=== PATIENT | female | born 1935 | race Caucasian/White ===

== ENCOUNTER 2025-05-27 12:22 | Inpatient (IN) | payer MEDICARE, SELFPAY ==
--- OUTSIDE RECORDS SUMMARY | 2025-05-19 08:00 | XMS_ITS | Encounter Summary ---
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 Social History Tobacco UseTypesPacks/DayYears UsedDateSmoking Tobacco: NeverSmokeless Tobacco: NeverCommentsUnknownSex and Gender InformationValueDate RecordedSex Assigned at BirthNot on fileLegal CngCqtdbb09/15/2023 7:24 PM EDTGender Identity Not on fileSexual OrientationNot on filedocumented as of this encounter Last Filed Vital Signs Vital SignReadingTime TakenCommentsBlood Igjxlsag990/6205/19/2025 11:50 AM EDT Pulse--Temperature--Respiratory Rate--Oxygen Saturation--Inhaled Oxygen Concentration--Weight--Height--Body Mass Index--documented in this encounter Progress Notes * Suyapa Tiwari MD - 05/19/2025 9:00 AM EDT Images from the original note were not included. Mohs Surgery Location: Left superior helix Date of biopsy: 02/28/2025 Diagnosis: Basal Cell Carcinoma All pertinent medical history, medications, and allergies were reviewed. General Exam: alert, oriented to person, place, and time, normal affect, well appearing Unaccompanied A focused exam completed based on patient reported problems, see below: Skin Exam 1. BASAL CELL CARCINOMA (BCC) OF HELIX OF LEFT EAR Left [place] Flesh colored papule at the biopsy site, re-measured today at 1.0 x 0.9 cm - Mohs surgery Consent obtained: written [place] Protocol: Procedure explained and questions answered to patient or proxy's satisfaction: Yes Test results available and properly labeled: Yes Pathology report reviewed: Yes External notes reviewed: Yes Photo or diagram used for site identification: Yes Site/side marked: Yes Slide independently reviewed by Mohs surgeon: Yes Anticoagulation: Is the patient taking prescription anticoagulant and/or aspirin prescribed/recommended by a physician? Yes (81 mg ASA) Was the anticoagulation regimen changed prior to Mohs? No Anesthesia: Anesthesia method: local infiltration Local anesthetic: lidocaine 1% WITH epi and sodium bicarbonate Procedure Details: Timeout: pre-procedure verification complete Procedure Prep: patient was prepped and draped in usual sterile fashion Prep type: chlorhexidine Biopsy accession number: [id number] Biopsy lab: [facility] Date of biopsy: 02/28/2025 Frozen section biopsy performed: No Specimen debulked: No Pre-Op diagnosis: basal cell carcinoma BCC subtype: nodular MohsAIQ Surgical site (if tumor spans multiple areas, please select predominant area): ear Surgery side: left Surgical site (from skin exam): Left [place] Pre-operative length (cm): 1 Pre-operative width (cm): 0.9 Indications for Mohs surgery: anatomic location where tissue conservation is critical and ill-defined borders Previously treated? No Mohs Appropriate Use Criteria Score: 8 Details of micrographic surgery: Mohs accession number: [id number] Micrographic Surgery Details: Post-operative length (cm): 1.3 Post-operative width (cm): 1.2 Number of Mohs stages: 2 Post surgery depth of defect: perichondrium Stage 1 Comments: The area was prepped with Hibiclens, draped in a sterile fashion, and infiltrated with local anesthetic. Sterile technique was used throughout the procedure. The marked area of clinical tumor with a small rim of clinically normal surrounding skin was removed using Mohs technique with beveled edges. Hash nesbitt were placed for orientation of the specimen. Hemostasis was achieved with electrodessication. After hemostasis, the defect was measured and recorded, a temporary sterile dressingwas placed over the wound, and the patient was escorted to the waiting area. The specimen was oriented, mapped, and if necessary, divided into sections. A Mohs map was prepared. The specimen was placed in a labeled yuliana dish and was taken to the Mohs lab where it was chromacoded and processed. Mohs sections were prepared with serial tissue sections, stained, and evaluated by Dr. Tiwari for interpretation of deep and peripheral margins. The Mohs map was marked accordingly. Amount of lidocaine used: 1.0 cc Estimated blood loss: minimal Defect size: 1.1 x 1.0 cm Number of blocks per stage: 1 Number of positive blocks: 1 Tumor features identified on Mohs section: basal carcinoma Tumor features identified on Mohs section comment: nodular and micronodular in dermis, superficial at the lateral margin Depth of tumor invasion after stage: dermis Stage 2 Comments: The patient returned to the procedure room, the dressing was removed, the tumor area was re-prepped and draped, and anesthesia was assessed and augmented as necessary. A layer of tissue around the positive margin(s) was removed, and the tissue was oriented, mapped, and processed in an identical fashion as for Stage 1. Hemostasis was achieved and dressing placed as in Stage 1. The patient was escorted to the waiting area. As with Stage 1, Mohs sections were prepared with serial tissue sections, stained, and evaluated by Dr. Tiwari for interpretation of deep and peripheral margins. The Mohs map was updated. Assistants: Moe Morris LPN Amount of lidocaine used: 1.0 cc Estimated blood loss: minimal Defect size: 1.3 x 1.2 cm Number of blocks: 1 Number of positive blocks: 0. Tumor free margins were obtained and the Mohs procedure was considered complete. Tumor features identified on Mohs section: no tumor identified Depth of tumor invasion after stage: perichondrium Patient tolerance of procedure: tolerated well, no immediate complications Reconstruction: Was the defect reconstructed?: No Antibiotics: Were antibiotics given on the day of surgery?: No Mohs Post Operative Type of repair: None. Wound to heal by secondary intention. Wound Care: A dressing was placed on the surgical wound. Post-operative instructions were given in writing and were reviewed with the patient. A follow- up appointment was made, and instructions were given to follow-up sooner if necessary. 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 Test results available and properly labeled: Yes ?? Pathology report reviewed: Yes ?? External notes reviewed: Yes ?? Photo or diagram used for site identification: Yes ?? Site/side marked: Yes ?? Slide independently reviewed by Mohs surgeon: Yes ?? Anticoagulation: Is the patient taking prescription anticoagulant and/or aspirin prescribed/recommended by a physician? Yes (81 mg ASA) ?? Was the anticoagulation regimen changed prior to Mohs? No ?? Anesthesia: Anesthesia method: local infiltration Local anesthetic: lidocaine 1% WITH epi and sodium bicarbonate Procedure Details: Timeout: pre-procedure verification complete Procedure Prep: patient was prepped and draped in usual sterile fashion Prep type: chlorhexidine Biopsy accession number: [id number] Biopsy lab: [facility] Date of biopsy: 02/28/2025 Frozen section biopsy performed: No ?? Specimen debulked: No ?? Pre-Op diagnosis: basal cell carcinoma BCC subtype: nodular MohsAIQ Surgical site (if tumor spans multiple areas, please select predominant area): ear Surgery side: left Surgical site (from skin exam): Left [place] Pre-operative length (cm): 1 Pre-operative width (cm): 0.9 Indications for Mohs surgery: anatomic location where tissue conservation is critical and ill-defined borders Previously treated? No ?? Mohs Appropriate Use Criteria Score: 8 Details of micrographic surgery: Mohs accession number: [id number] Micrographic Surgery Details: Post-operative length (cm): 1.3 Post-operative width (cm): 1.2 Number of Mohs stages: 2 Post surgery depth of defect: perichondrium Stage 1 ?? Comments: The area was prepped with Hibiclens, draped in a sterile fashion, and infiltrated with local anesthetic. Sterile technique was used throughout the procedure. The marked area of clinical tumor with a small rim of clinically normal surrounding skin was removed using Mohs technique with beveled edges. Hash nesbitt were placed for orientation of the specimen. Hemostasis was achieved with electrodessication. After hemostasis, the defect was measured and recorded, a temporary sterile dressing was placed over the wound, and the patient was escorted to the waiting area. The specimen was oriented, mapped, and if necessary, divided into sections. A Mohs map was prepared. The specimen was placed in a labeled yuliana dish and was taken to the Mohs lab where it was chromacoded and processed. Mohs sections were prepared with serial tissue sections, stained, and evaluated by Dr. Tiwari for interpretation of deep and peripheral margins. The Mohs map was marked accordingly. Amount of lidocaine used: 1.0 cc Estimated blood loss: minimal Defect size: 1.1 x 1.0 cm Number of blocks per stage: 1 Number of positive blocks: 1 ?? Tumor features identified on Mohs section: basal carcinoma ?? Tumor features identified on Mohs section comment: nodular and micronodular in dermis, superficial at the lateral margin ?? Depth of tumor invasion after stage: dermis Stage 2 ?? Comments: The patient returned to the procedure room, the dressing was removed, the tumor area was re-prepped and draped, and anesthesia was assessed and augmented as necessary. A layer of tissue around the positive margin(s) was removed, and the tissue was oriented, mapped, and processed in an identical fashion as for Stage 1. Hemostasis was achieved and dressing placed as in Stage 1. The patient was escorted to the waiting area. As with Stage 1, Mohs sections were prepared with serial tissue sections, stained, and evaluated by Dr. Tiwari for interpretation of deep and peripheral margins. The Mohs map was updated. Assistants: Moe Morris LPN Amount of lidocaine used: 1.0 cc Estimated blood loss: minimal Defect size: 1.3 x 1.2 cm Number of blocks: 1 Number of positive blocks: 0. Tumor free margins were obtained and the Mohs procedure was considered complete. ?? Tumor features identified on Mohs section: no tumor identified ?? Depth of tumor invasion after stage: perichondrium Patient tolerance of procedure: tolerated well, no immediate complications Reconstruction: Was the defect reconstructed?: No ?? Antibiotics: Were antibiotics given on the day of surgery?: No ?? 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
[2025-05-27] VITALS (22 sets, daily range): BP systolic 137–182; BP diastolic 69–99; PULSE 73–96; TEMP 36.3–36.7; O2SAT 95–98; BMI 21.9; BMI 22.2
--- NOTE | 2025-05-27 12:40 | CT_ITS ---
The [address] [address] Patient Name: MARIA R HIRSCH MRN: [id number] date: 1935 Sex: F Assigned Patient Location: ER Current Patient Location: Accession/Order Number: [id number] Exam Date: 05/27/2025 13:05 Report Date: 05/27/2025 13:51 At the request of: BASSAM JANE DO Procedure: CT angio neck CT angio head, CT angio neck 05/27/2025 1:19 PM SIGNS AND SYMPTOMS: Right upper extremity weakness, right facial droop TECHNIQUE: Multi-detector CT angiography axial slices of the head and neck were obtained during intravenous administration of IV contrast material. Sagittal, coronal, and 3-D reconstructions were performed and viewed on a separate workstation. CT was performed with one or more of the following dose reduction techniques: Automated exposure control, adjustment of the mA and/or kV according to patient size, or use of iterative reconstruction technique. Stenoses were measured using the NASCET criteria. COMPARISON: None. FINDINGS: CTA HEAD: The superior cerebellar arteries, posterior inferior cerebellar arteries, and the basilar artery are within normal limits. The posterior cerebral arteries are unremarkable. Calcified plaque is noted in the intracranial segments of the internal carotid arteries contributing to mild multifocal narrowing.. There are normal anterior and middle cerebral arteries. Anterior communicating artery is patent. Posterior communicating arteries are present. The deep venous system and dural venous systems appear to be patent. No bony abnormalities are appreciated. CTA NECK: Atherosclerotic changes are noted in the aortic arch and origins of the great vessels. There is a common ostium of the left common carotid and brachiocephalic artery which is a normal variant. The subclavian arteries are within normal limits. The vertebral arteries arise from the subclavian arteries. Calcified plaque is noted in the origins of the vertebral arteries contributing to moderate stenosis on the right and mild stenosis on the left. 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 This measures approximately 3 mm. Calcified plaque is noted in the carotid bifurcations contributing to approximately 60% stenosis of the proximal left internal carotid artery with less than 20% stenosis on the right. Visualized lung parenchyma is clear. Degenerative changes are noted in the cervical spine. No acute bony abnormalities are identified. The paraspinous soft tissues are within normal limits. CT/CT angio head IMPRESSION: Calcified plaque is noted in the carotid bifurcations contributing to approximately 60% stenosis of the proximal left internal carotid artery with less than 20% stenosis on the right. Calcified plaque is noted in the origins of the vertebral arteries contributing to moderate stenosis on the right and mild stenosis on the left. 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 This measures approximately 3 mm. No evidence of occlusion or dissection. Impression dictated by: Kermit White M.D. 05/27/2025 1:51 PM Dictation Location: [place] [address] Electronically authenticated by: [id number] Y Date: 05/27/2025 13:51
--- NOTE | 2025-05-27 12:40 | ECG_ITS ---
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 Measurements Intervals [place] Rate: 76 P: 56 MS: 180 QRS: 59 QRSD: 78 T: 49 QT: 394 QTc: 424 Interpretive Statements 1100 Sinus rhythm 4068 Nonspecific Twave abnormality 9130 borderline ECG No previous ECG available for comparison Electronically Signed On 05-27-2025 22:48:21 EST by MIGUEL A RAMIREZ M.D.
--- NOTE | 2025-05-27 12:40 | CT_ITS ---
The [address] [address] Patient Name: MARIA R HIRSCH MRN: [id number] date: 1935 Sex: F Assigned Patient Location: ER Current Patient Location: Accession/Order Number: [id number] Exam Date: 05/27/2025 13:05 Report Date: 05/27/2025 13:51 At the request of: BASSAM JANE DO Procedure: CT angio neck CT angio head, CT angio neck 05/27/2025 1:19 PM SIGNS AND SYMPTOMS: Right upper extremity weakness, right facial droop TECHNIQUE: Multi-detector CT angiography axial slices of the head and neck were obtained during intravenous administration of IV contrast material. Sagittal, coronal, and 3-D reconstructions were performed and viewed on a separate workstation. CT was performed with one or more of the following dose reduction techniques: Automated exposure control, adjustment of the mA and/or kV according to patient size, or use of iterative reconstruction technique. Stenoses were measured using the NASCET criteria. COMPARISON: None. FINDINGS: CTA HEAD: The superior cerebellar arteries, posterior inferior cerebellar arteries, and the basilar artery are within normal limits. The posterior cerebral arteries are unremarkable. Calcified plaque is noted in the intracranial segments of the internal carotid arteries contributing to mild multifocal narrowing.. There are normal anterior and middle cerebral arteries. Anterior communicating artery is patent. Posterior communicating arteries are present. The deep venous system and dural venous systems appear to be patent. No bony abnormalities are appreciated. CTA NECK: Atherosclerotic changes are noted in the aortic arch and origins of the great vessels. There is a common ostium of the left common carotid and brachiocephalic artery which is a normal variant. The subclavian arteries are within normal limits. The vertebral arteries arise from the subclavian arteries. Calcified plaque is noted in the origins of the vertebral arteries contributing to moderate stenosis on the right and mild stenosis on the left. 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 This measures approximately 3 mm. Calcified plaque is noted in the carotid bifurcations contributing to approximately 60% stenosis of the proximal left internal carotid artery with less than 20% stenosis on the right. Visualized lung parenchyma is clear. Degenerative changes are noted in the cervical spine. No acute bony abnormalities are identified. The paraspinous soft tissues are within normal limits. CT/CT angio neck IMPRESSION: Calcified plaque is noted in the carotid bifurcations contributing to approximately 60% stenosis of the proximal left internal carotid artery with less than 20% stenosis on the right. Calcified plaque is noted in the origins of the vertebral arteries contributing to moderate stenosis on the right and mild stenosis on the left. 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 This measures approximately 3 mm. No evidence of occlusion or dissection. Impression dictated by: Kermit White M.D. 05/27/2025 1:51 PM Dictation Location: [place] [address] Electronically authenticated by: [id number] Y Date: 05/27/2025 13:51
--- NOTE | 2025-05-27 12:40 | XR_ITS ---
[place] [id number] Patient Name: MARIA R HIRSCH MRN: [id number] date: 1935 Sex: F Assigned Patient Location: ER Current Patient Location: ER Accession/Order Number: [id number] Exam Date: 05/27/2025 13:35 Report Date: 05/27/2025 14:13 At the request of: BASSAM JANE DO Procedure: XR chest 1V XR chest 1V 05/27/2025 1:44 PM SIGNS AND SYMPTOMS: ^CVA PROTOCOL: Frontal radiograph of the chest COMPARISON: None FINDINGS: The trachea is midline. Atherosclerotic changes are noted in the thoracic aorta. The heart and mediastinal structures are within normal limits. The lung parenchyma is clear. The bony thorax is intact. Degenerative changes are noted in the shoulders and thoracic spine. XR/XR chest 1V IMPRESSION: No acute cardiopulmonary pathology. Impression dictated by: Kermit White M.D. 05/27/2025 2:13 PM Dictation Location: [place] [address] Electronically authenticated by: [id number] Y Date: 05/27/2025 14:13
--- NOTE | 2025-05-27 12:40 | CT_ITS ---
The [address] [address] Patient Name: MARIA R HIRSCH MRN: [id number] date: 1935 Sex: F Assigned Patient Location: ER Current Patient Location: [facility] Accession/Order Number: [id number] Exam Date: 05/27/2025 12:48 Report Date: 05/27/2025 13:00 At the request of: BASSAM JANE DO Procedure: CT stroke head/brain wo con CT stroke head/brain wo con 05/27/2025 12:51 PM SIGNS AND SYMPTOMS: ^R arm, leg weakness 25 hours ago TECHNIQUE:Multi-detector CT axial slices of the brain were obtained without IV contrast. CT was performed with one or more of the following dose reduction techniques: Automated exposure control, adjustment of the mA and/or kV according to patient size, or use of iterative reconstruction technique. COMPARISON: None. FINDINGS: There is no shift of the midline structures, acute intracranial bleeding, or mass effect. There is hypoattenuation in the left frontal cortex extending to the precentral gyrus just beneath the expected location of the motor strip the left hand/upper extremity. This may represent edema as a result of acute or subacute ischemia. There is age-related cortical atrophy. 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 There is periventricular white matter hypoattenuation. 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 The ventricular system is normal in size. The brainstem and the cerebellum are within normal limits otherwise. The visualized intraorbital contents, the visualized paranasal sinuses, and the infratemporal soft tissues show no acute abnormality. The osseous structures in the skull base and the calvarium show no abnormality. CT/CT stroke head/brain wo con IMPRESSION: There is hypoattenuation in the left frontal cortex extending to the precentral gyrus just beneath the expected location of the motor strip the left hand/upper extremity. This may represent edema as a result of acute or subacute ischemia. No acute intracranial hemorrhage. Additional chronic appearing findings are noted as above. Impression dictated by: Kermit White M.D. 05/27/2025 1:00 PM Dictation Location: [place] [address] Electronically authenticated by: [id number] Y Date: 05/27/2025 13:00
[2025-05-27 12:53] LABS: Hematocrit 39.9 % (36.0-48.0); Hemoglobin 13.1 g/dL (12.0-16.0); Immature Granulocytes Abs Auto 0.01 10^3/uL (0.00-0.03); Immature Granulocytes Pct Auto 0.2 % (0.0-0.5); Lymphocytes Absolute Auto 1.6 10^3/uL (1.2-3.8); Mean Corpuscular HGB Conc 32.8 g/dL (29.9-35.2); Mean Corpuscular Hemoglobin 31.2 pg (26.7-34.0); Mean Corpuscular Volume 95.0 fL (81.0-99.0); Platelet Count 185 10^3/uL (150-450); Red Blood Count 4.20 10^6/uL (4.20-5.40); White Blood Count 5.1 10^3/uL (4.0-11.0)
--- OUTSIDE RECORDS SUMMARY | 2025-05-27 13:05 | XMS_ITS | Clinical Summary ---
Author Organization [facility] Address [address] [place] [address] Phone Care Team Providers Care Head Chef Name Role Phone Unavailable Primary Care Provider Unavailabl e Social History Tobacco UseTypesPacks/DayYears UsedDateSmoking Tobacco: Never Assessed CommentsUnknownSex and Gender InformationValueDate RecordedSex Assigned at Not on fileLegal WmiFtyepz25/25/2022 4:20 PM ESTGender IdentityNot on fileSexual OrientationNot on file Plan of Treatment Not on file
--- OUTSIDE RECORDS SUMMARY | 2025-05-27 13:05 | XMS_ITS | Encounter Summary ---
Author Organization [facility] Address [address] [place] [address] Care Team Providers Care Custom Studio Coordinator Name Role Phone Unavailable Primary Care Provider Unavailabl e Encounter Details DateTypeDepartmentCare Team (Latest Contact Info)Ysrdtzoxsij57/31/2025amboo flowsheet [facility] [address] [place] [address] Suyapa Tiwari MD [address] [place] [address] Social History Tobacco UseTypesPacks/DayYears UsedDateSmoking Tobacco: NeverSmokeless Tobacco: NeverCommentsUnknownSex and Gender InformationValueDate RecordedSex Assigned at BirthNot on fileLegal MxrXyjmxe28/15/2023 7:24 PM EDTGender Identity Not on fileSexual OrientationNot on filedocumented as of this encounter Plan of Treatment DateTypeDepartmentCare Team (Latest Contact Info)Vaghigyxcrq32/12/2026 12:30 PM EDTOffice Visit [facility] [address] [place] [address] Crys Low PA [address] [place] [address] documented as of this encounter Visit Diagnoses Not on filedocumented in this encounter
--- OUTSIDE RECORDS SUMMARY | 2025-05-27 13:05 | XMS_ITS | Clinical Summary ---
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 Take with meals.Active CINNAMON PO Take by mouthActive Ascorbic Acid (vitamin C) 100 MG tablet Take 100 mg by mouth DailyActive verapamil ER (Verelan PM) 100 MG 24 hr capsule Take 100 mg by mouth at bedtime Do not crush or chew.Active escitalopram (Lexapro) 20 MG tablet Take 20 mg by mouth DailyActive pravastatin (Pravachol) 20 MG tablet Take by mouthActive Cranberry 4200 MG capsule Take by mouthActive Melatonin 3 MG capsule Take by mouthActive aspirin 81 MG EC tablet Take 81 mg by mouth DailyActive doxycycline (Monodox) 100 MG capsule Take 100 mg by mouth in the morning and 100 mg before bedtime.5Active mupirocin (Bactroban) 2 % ointment Indications: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Apply to left ear daily until healed/30 days 22 g 10/31tive Active Problems No known active problems Encounters DateTypeDepartmentCare LjcaZvoxluzncbo75/03/2025Telephone [facility] [place] [facility] [address] [place] [address] Suyapa Morris LPN Courtesy call05/19/2025 9:00 AM EDTOffice Visit [facility] [address] [place] [address] Suyapa Tiwari MD 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05/19/2025amboo flowsheet [facility] [place] [facility] [address] [place] [address] Suyapa Tiwari MD 05/19/20256541Fbtvqy10/24/7694Jxsowf48/21/8539Rllknq18/20/2025Results Follow-Up [facility] [address] [place] [address] Crys Low PA Dermatopathology exam02/28/2025 1:00 PM EDTOffice Visit [facility] [address] [place] [address] Crys Low PA Seborrheic keratosis (Primary Dx); Linda angioma; Melanocytic nevus of trunk; Neoplasm of unspecified behavior of bone, soft tissue, and skin02/28/2025amboo flowsheet [place] [id number] [place] [phone] Crys Low PA 02/28/2025Travelfrom Last 3 Months Family History Medical HistoryRelationNameCommentsSkin cancerBrotherSkin cancerFatherMelanoma Neg HxRelationNameStatusCommentsBrotherFather Social History Tobacco UseTypesPacks/DayYears UsedDateSmoking Tobacco: NeverSmokeless Tobacco: Never Tobacco Cessation:Counseling Given: Not Answered CommentsUnknownSex and Gender InformationValueDate RecordedSex Assigned at BirthNot on fileLegal UldMtades33/15/2023 7:24 PM EDTGender IdentityNot on fileSexual OrientationNot on file Last Filed Vital Signs Vital SignReadingTime TakenCommentsBlood Houmdpll184/6210 11:50 AM EDT Pulse--Temperature--Respiratory Rate--Oxygen Saturation--Inhaled Oxygen Concentration--Weight--Height--Body Mass Index-- Plan of Treatment DateTypeDepartmentCare Team (Latest Contact Info)Upvkdpkbkny94/12/2026 12:30 PM EDTOffice Visit [facility] [address] [place] [address] Crys Low, HANNAH [address] [place] [address] Procedures Procedure NamePriorityDate/TimeAssociated DiagnosisCommentsMOHS SURGERYRoutine 05/19/2025 9:05 AM EDT 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 SKIN / NAIL YLGZDVSpxjldz03/12/2025 1:07 PM EDT Neoplasm of unspecified behavior of bone, soft tissue, and skin DERMATOPATHOLOGY HIWLAvaxxxb95/12/2025 12:00 AM EDT Neoplasm of unspecified behavior of bone, soft tissue, and skin from Last 3 Months Results * Mohs surgery (05/19/2025 9:05 AM EDT) Narrative Suyapa Morris LPN - 05/19/2025 9:05 AM EDT Consent obtained: written [place] Protocol: Procedure explained and questions answered to [...] fashion Prep type: chlorhexidine Biopsy accession number: [id number] Biopsy lab: [facility] Date of biopsy: 02/28/2025 Frozen section biopsy performed: No ?? Specimen debulked: No ?? Pre-Op diagnosis: basal cell carcinoma BCC subtype: nodular MohsAIQ Surgical site (if tumor spans multiple areas, please select predominant area): ear Surgery side: left Surgical site (from skin exam): Left [place] Pre-operative length (cm): 1 Pre-operative width (cm): [...] No ?? Authorizing ProviderResult TypeResult StatusCojacklyn Tiwari [facility] PROCEDURE ORDERABLESFinal Result * Lesion biopsy (02/28/2025 1:07 PM EDT) Narrative Jaci Jerry MA - 02/28/2025 1:07 PM EDT Type of biopsy: tangential Informed consent: discussed and consent obtained ?? Informed consent comment: ??The risks and benefits of the biopsy were discussed. Risks include but are not limited to bleeding, infection, scarring, pain, and nerve damage. An opportunity to ask questions prior to the procedure was permitted and all questions were answered. Patient was prepped and draped in usual sterile fashion: area cleansed with alcohol. Anesthesia: the lesion was anesthetized in a standard fashion ?? Anesthetic: ??1% lidocaine w/ epinephrine 1-100,000 buffered w/ 8.4% NaHCO3 Instrument used: DermaBlade ?? Hemostasis achieved with: electrodesiccation ?? Outcome: patient tolerated procedure well ?? Outcome comment: ??The specimen was placed in a prelabeled formalin container to be sent for pathology Post-procedure details: sterile dressing applied and wound care instructions given ?? Post-procedure details comment: ??Emphasized need to contact clinic for any signs of infection, uncontrollable bleeding, or complications. Dressing type: bandage ?? Additional details: ??Photo taken yes Amount of lidocaine used: 1.0 cc Authorizing ProviderResult TypeResult [facility] PROCEDURE ORDERABLESFinal Result * Dermatopathology exam (02/28/2025 12:00 AM EDT)ComponentValueRef RangeTest MethodAnalysis TimePerformed AtPathologist SignatureSPECIMEN TYPE SPECIMEN: LT SUP HELIX TESSIE [id number] Code C44.211AURORA DIAGNOSTICSPROTOCOLF - FLATAURORA DIAGNOSTICSFinal Diagnosis BASAL CELL CARCINOMA, NODULAR TYPE, EXTENDING TO THE DEEP MARGIN.TESSIE DIAGNOSTICSGross TextAURORA DIAGNOSTICSMicroscopic DescriptionMicroscopic examination performed.TESSIE [id number]*1AURORA DIAGNOSTICSSpecimen (Source)Anatomical Location / LateralityCollection Method / VolumeCollection TimeReceived TimeSkinTopography unknown / Vuybbvx9902/28/2025 1:07 PM EDT Comment:Differential Diagnosis: BCC Check Margins: No Size of lesion: 0.7 x 0.7 cm Narrative Authorizing ProviderResult TypeResult [facility] ORDERABLESFinal ResultPerforming OrganizationAddressCity/State/ZIP CodePhone Number [facility] from Last 3 Months Insurance
--- OUTSIDE RECORDS SUMMARY | 2025-05-27 13:05 | XMS_ITS | Encounter Summary ---
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 Role Phone Unavailable Primary Care Provider Unavailabl e Encounter Details DateTypeDepartmentCare Team (Latest Contact Info)Ibzxzzopomv90/31/2025Travel Social History Tobacco UseTypesPacks/DayYears UsedDateSmoking Tobacco: NeverSmokeless Tobacco: NeverCommentsUnknownSex and Gender InformationValueDate RecordedSex Assigned at BirthNot on fileLegal WolNtgera94/15/2023 7:24 PM EDTGender Identity Not on fileSexual OrientationNot on filedocumented as of this encounter Plan of Treatment DateTypeDepartmentCare Team (Latest Contact Info)Mocqnnqrkgx33/12/2026 12:30 PM EDTOffice Visit [facility] [address] [place] [phone] Crys Low, PA [address] [facility] [address] [place] [address] documented as of this encounter Visit Diagnoses Not on filedocumented in this encounter
--- OUTSIDE RECORDS SUMMARY | 2025-05-27 13:05 | XMS_ITS | Encounter Summary ---
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 Role Phone Unavailable Primary Care Provider Unavailabl e Reason for Visit * ReasonOnset DateCommentsCourtesy call05/22/2025 Encounter Details DateTypeDepartmentCare Team (Latest Contact Info)Ovwxrvmtmkb85/03/2025Telephone [facility] [place] [facility] [address] [facility] [address] [place] [address] Suyapa Morris LPN Courtesy call Social History Tobacco UseTypesPacks/DayYears UsedDateSmoking Tobacco: NeverSmokeless Tobacco: NeverCommentsUnknownSex and Gender InformationValueDate RecordedSex Assigned at BirthNot on fileLegal IspXished95/15/2023 7:24 PM EDTGender Identity Not on fileSexual OrientationNot on filedocumented as of this encounter Miscellaneous Notes * Telephone Encounter - Suyapa Morris LPN - 05/22/2025 12:14 PM EST T/C to pt to check on condition after Mohs on Thursday. Pt states she's doing fine, denies pain or bleeding. Instructed pt to call back for any further questions or concerns. documented in this encounter Plan of Treatment DateTypeDepartmentCare Team (Latest Contact Info)Rnrfvlosirs10/12/2026 12:30 PM EDTOffice Visit [facility] [address] [place] [phone] Crys Low, HANNAH [address] [place] [address] documented as of this encounter Visit Diagnoses Not on filedocumented in this encounter
[2025-05-27 13:11] LABS: INR 1.03; Partial Thromboplastin Time 24.2 sec (22.3-36.2); Prothrombin Time 10.9 sec (9.0-11.6)
[2025-05-27 13:16] LABS: Alanine Aminotransferase 24 U/L (14-59); Albumin Globulin Ratio 1.0; Albumin Level 3.6 g/dL (3.4-5.0); Alkaline Phosphatase 99 U/L (46-116); Anion Gap 13.6; Aspartate Amino Transferase 27 U/L (15-37); Blood Urea Nitrogen 14.0 mg/dL (7.0-18.0); Calcium 9.1 mg/dL (8.5-10.1); Carbon Dioxide 25.4 mmol/L (21.0-32.0); Chloride 108 mmol/L (98-107); Estimated GFR (African America >60 (>=60 mL/min/1.73m^2); Estimated GFR (Non-African Ame 58 (>=60 mL/min/1.73m^2); Globulin 3.5 g/dL; Glucose 117 mg/dL (74-106); Potassium 4.0 mmol/L (3.5-5.1); Sodium 143 mmol/L (136-145); Total Protein 7.1 g/dL (6.4-8.2)
[2025-05-27 13:20] LABS: Thyroid Stimulating Hormone 1.372 uIU/mL (0.358-3.740)
--- NOTE | 2025-05-27 13:32 | ED.GENADUL1 ---
HPI HPI - General Adult General Chief complaint: Neuro Symptoms/Deficit Stated complaint: R SIDED ARM/LEG NUMBNESS Time Seen by Provider: 05/27/25 12:37 Source: patient Mode of arrival: Wheelchair History of Present Illness HPI narrative: Patient is an 89-year-old female presenting to the emergency department for evaluation of right-sided weakness. The patient states that she took a nap yesterday at 11 AM, approximately 25 hours prior to ED arrival. She states she went to bed normal. When she awoke about an hour later, she could not move her right arm. She also noticed some weakness in her right leg. She did not present to the ED because she thought her symptoms would improve on their own. Other than the right-sided weakness, she denies any other symptoms. She has no headache, neck pain, visual changes, change in taste/smell/hearing, chest pain, shortness of breath, abdominal pain, nausea, vomiting, left-sided weakness, slurred speech, or any other symptoms. She denies history of prior stroke. She is not on anticoagulation, just takes a baby aspirin daily. Related Data Home Medications ?Medication ?Instructions ?Recorded ?Confirmed cholecalciferol (vitamin D3) 1,250 1,250 mcg PO .weekly 05/27/25 05/27/25 mcg (50,000 unit) capsule colestipol 1 gram tablet 1 g PO BID 05/27/25 05/27/25 mupirocin 2 % topical ointment 1 applic topical BID 05/27/25 05/27/25 pravastatin 20 mg tablet 20 mg PO DAILY 05/27/25 05/27/25 verapamil 300 mg capsule 24hr 300 mg PO DAILY 05/27/25 05/27/[address],ext.release Allergies Allergy/AdvReac Type Severity Reaction Status Date / Time No Known Drug Allergies Allergy Verified 05/27/25 12:31 Review of Systems ROS Status of ROS 10 or more systems reviewed and unremarkable except as noted in history and below [facility] Medical History (Updated 05/27/25 @ 14:25 by Monique Silver) Hypertension ?I10 - Essential (primary) hypertension (ICD-10) Hyperlipemia ?E78.5 - Hyperlipidemia, unspecified (ICD-10) Social History Little interest or pleasure in doing things: not at all Feeling down, depressed, or hopeless: not at all Exam Narrative Exam Narrative: CONSTITUTIONAL: Well-appearing, answering questions and following commands appropriately SKIN: Was warm and dry. EYES: No conjunctival pallor. Sclera white. EARS, NOSE, THROAT: Moist mucosa. RESPIRATORY: Clear to auscultation bilaterally, no wheezes, crackles, or stridor, no use of accessory muscles CARDIOVASCULAR: Normal rate and regular rhythm. There is no S3, S4, murmur, rub. Radial pulses are 2+ and symmetrical. GASTROINTESTINAL: Abdomen was soft, non-tender, and non-distended. There is no guarding or rebound tenderness MUSCULOSKELETAL: There was no lower extremity edema, erythema, or tenderness. NEUROLOGIC: Patient is alert and oriented to person place and time with normal speech. No extinction. Memory is normal and thought process is intact. NIHSS 5 (4 for RUE weakness, 1 for left sided facial droop) Sensation: sensation to light touch is intact bilaterally in upper and lower extremities. Motor: Good muscle tone. Strength is 0/5 in the right upper extremity, 4/5 in the right lower extremity, and 5/5 in the left upper and left lower extremity. Cerebellar: Finger to nose intact. Patient is able to ambulate with mild gait impairment from her right lower extremity weakness Cranial Nerves: Pupils are round, reactive to light and accommodation. Extraocular movements are intact without ptosis. No nystagmus. Facial sensation intact bilaterally to light touch in the V1, V2, V3 distribution. Mild left-sided facial droop. Hearing is normal bilaterally. Palate and uvula elevate symmetrically. Shoulder shrug strong and equal bilaterally. Tongue protrudes midline and moves symmetrically. Constitutional Vital Signs, click to edit/add: Last Vital Signs Temp 97.4 F L 05/27/25 12:31 Pulse 73 05/27/25 13:40 Resp 18 05/27/25 13:40 BP 146/99 H 05/27/25 12:39 Pulse Ox 97 05/27/25 12:40 O2 Del Method Room Air 05/27/25 12:31 Course Vital Signs Vital signs: Vital Signs Blood Pressure 179/69 H 05/27/25 12:30 Temperature 97.4 F L 05/27/25 12:31 Pulse Rate 73 05/27/25 13:40 Respiratory Rate 18 05/27/25 13:40 Blood Pressure 146/99 H 05/27/25 12:39 Pulse Oximetry 97 05/27/25 12:40 Oxygen Delivery Method Room Air 05/27/25 12:31 Medical Decision Making MDM Narrative Medical decision making narrative: Patient is an 89-year-old female presenting to the emergency department for evaluation of right-sided arm and leg weakness. Her last known well was 25 hours prior to ED arrival. Her vital signs on arrival are within normal limits. She is afebrile dynamically stable. Examination as noted above, however is notable for an NIHSS of 5 for right upper extremity weakness and left facial droop. She has 4/5 strength in right lower extremity as well. My clinical impression is that the patient is experiencing a subacute stroke, outside of the window for both thrombolytics and thrombectomy. Regardless, CT/CTA of the head/neck were ordered. IV was established and laboratory studies were obtained. Laboratory studies were unremarkable. No significant electrolyte or metabolic derangement. No evidence of acute kidney injury. No anemia, leukocytosis, or thrombocytopenia. No transaminitis or hyperbilirubinemia. Euglycemic. TSH normal. Troponin nonelevated. 12 Lead EKG: Normal sinus rhythm at a rate of 76. Normal axis. No ST segment elevations. QRS, WI, and QTc interval within normal limits. Final impression: normal sinus rhythm without evidence of acute myocardial ischemia CT head independently reviewed/interpreted by myself demonstrated hypoattenuation in the left frontal cortex extending to the precentral gyrus just beneath the expected location of the motor strip the right hand/upper extremity. This may represent edema as a result of acute or subacute ischemia. CTA of the head/neck demonstrated no evidence of large vessel occlusion or dissection. 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 I did consult and discuss the patient with telestroke neurologist at [facility], Dr. Lopez, who recommended a load of 300 mg Plavix once followed by continued DAPT. He also recommended the patient can stay at [facility] and does not require transfer. I discussed the patient with Dr. Eaton who accepted the patient to his service. FINAL IMPRESSION: #Subacute CVA with right-sided weakness DISPOSITION: Admitted to the hospital CONDITION: Fair Lab Data Lab results reviewed: Yes I reviewed the patient's lab results Labs: Lab Results 05/27/25 05/27/25 Range/Units 12:43 12:45 WBC 5.1 (4.0-11.0) 10^3/uL RBC 4.20 (4.20-5.40) 10^6/uL Hgb 13.1 (12.0-16.0) g/dL Hct 39.9 (36.0-48.0) % MCV 95.0 (81.0-99.0) fL MCH 31.2 (26.7-34.0) pg MCHC 32.8 (29.9-35.2) g/dL RDW 13.2 (11.0-15.0) % Plt Count 185 (150-450) 10^3/uL MPV 8.7 L (9.5-13.5) fL Neut % (Auto) 59.9 (43.0-75.0) % Lymph % (Auto) 32.0 (20.5-60.0) % [place] % (Auto) 7.3 (1.7-12.0) % Eos % (Auto) 0.4 L (0.9-7.0) % Baso % (Auto) 0.2 (0.2-2.0) % Neut # (Auto) 3.0 (1.4-6.5) 10^3/uL Lymph # (Auto) 1.6 (1.2-3.8) 10^3/uL [place] # (Auto) 0.4 (0.3-0.8) 10^3/uL Eos # (Auto) 0.0 (0.0-0.7) 10^3/uL Baso # (Auto) 0.0 (0.0-0.1) 10^3/uL Abs Immat Gran (auto) 0.01 (0.00-0.03) 10^3/uL Imm/Tot Granulo (auto) 0.2 (0.0-0.5) % PT 10.9 (9.0-11.6) sec INR 1.03 APTT 24.2 (22.3-36.2) sec Sodium 143 (136-145) mmol/L Potassium 4.0 (3.5-5.1) mmol/L Chloride 108 H (98-107) mmol/L Carbon Dioxide 25.4 (21.0-32.0) mmol/L Anion Gap 13.6 BUN 14.0 (7.0-18.0) mg/dL Creatinine 0.91 (0.55-1.02) mg/dL Est GFR ( Amer) >60 (>=60 mL/min/1.73m^2) Est GFR (Non-Af Amer) 58 L (>=60 mL/min/1.73m^2) BUN/Creatinine Ratio 15.4 Glucose 117 H (74-106) mg/dL Calcium 9.1 (8.5-10.1) mg/dL Total Bilirubin 0.4 (0.2-1.0) mg/dL AST 27 (15-37) U/L ALT 24 (14-59) U/L Alkaline Phosphatase 99 (46-116) U/L Troponin I High Sens 4.3 (4.0-51.3) pg/mL Total Protein 7.1 (6.4-8.2) g/dL Albumin 3.6 (3.4-5.0) g/dL Globulin 3.5 g/dL Albumin/Globulin Ratio 1.0 TSH 1.372 (0.358-3.740) uIU/mL POC Glucose 107 H (74-106) mg/dL Imaging Data CT scan - head: Attestation: I personally reviewed and interpreted this imaging study as follows: Radiologist's impression: ITS Impressions Brain CT 05/27/25 12:40 IMPRESSION: There is hypoattenuation in the left frontal cortex extending to the precentral gyrus just beneath the expected location of the motor strip the left hand/upper extremity. This may represent edema as a result of acute or subacute ischemia. No acute intracranial hemorrhage. Additional chronic appearing findings are noted as above. Impression dictated by: Kermit White M.D. 05/27/2025 1:00 PM Dictation Location: [employer] Electronically authenticated by: [id number] Y Date: 05/27/2025 13:00 Chest X-Ray 05/27/25 12:40 IMPRESSION: No acute cardiopulmonary pathology. Impression dictated by: Kermit White M.D. 05/27/2025 2:13 PM Dictation Location: [employer] Electronically authenticated by: [id number] Y Date: 05/27/2025 14:13 Head CTA 05/27/25 12:40 IMPRESSION: Calcified plaque is noted in the carotid bifurcations contributing to approximately 60% stenosis of the proximal left internal carotid artery with less than 20% stenosis on the right. Calcified plaque is noted in the origins of the vertebral arteries contributing to moderate stenosis on the right and mild stenosis on the left. 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 This measures approximately 3 mm. No evidence of occlusion or dissection. Impression dictated by: Kermit White M.D. 05/27/2025 1:51 PM Dictation Location: [employer] Electronically authenticated by: [id number] Y Date: 05/27/2025 13:51 Neck CTA 05/27/25 12:40 IMPRESSION: Calcified plaque is noted in the carotid bifurcations contributing to approximately 60% stenosis of the proximal left internal carotid artery with less than 20% stenosis on the right. Calcified plaque is noted in the origins of the vertebral arteries contributing to moderate stenosis on the right and mild stenosis on the left. 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 This measures approximately 3 mm. No evidence of occlusion or dissection. Impression dictated by: Kermit White M.D. 05/27/2025 1:51 PM Dictation Location: [employer] Electronically authenticated by: [id number] Y Date: 05/27/2025 13:51 ECG Data Attestation: I personally reviewed and interpreted this ECG as follows: Discharge Plan Discharge Chief Complaint: Neuro Symptoms/Deficit Clinical Impression: Cerebrovascular accident Patient Disposition: Admitted As Inpatient Time of Disposition Decision: 14:18 Condition: Fair
[2025-05-27] MEDS: CLOPIDOGREL BISULFATE 75 MG TABLET 300 MG PO (14:43)
--- NOTE | 2025-05-27 20:04 | PC.NURSE ---
Patient able to move right arm with her shoulder and elbow but arm is flaccid below the elbow. 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 Able to feel when right lower arm and hand is touched. Denies pain.
--- NOTE | 2025-05-27 20:16 | PC.NURSE ---
Patient right hand is flaccid. Able to move right arm at the level of elbow and shoulder.
[2025-05-27] MEDS: AMLODIPINE BESYLATE 5 MG TABLET 2.5 MG PO (20:25)
[2025-05-27] MEDS: ATORVASTATIN CALCIUM 40 MG TABLET 80 MG PO (22:15)
[2025-05-27] MEDS: ARTIFICIAL TEARS 300 DROP/15 ML BOTTLE OP (22:31)
[2025-05-28] VITALS (17 sets, daily range): BP systolic 91–163; BP diastolic 66–77; PULSE 75–102; TEMP 36.7–36.8; O2SAT 94–96
[2025-05-28 06:46] LABS: Hematocrit 37.2 % (36.0-48.0); Hemoglobin 12.4 g/dL (12.0-16.0); Immature Granulocytes Abs Auto 0.01 10^3/uL (0.00-0.03); Immature Granulocytes Pct Auto 0.2 % (0.0-0.5); Lymphocytes Absolute Auto 2.5 10^3/uL (1.2-3.8); Mean Corpuscular HGB Conc 33.3 g/dL (29.9-35.2); Mean Corpuscular Hemoglobin 31.2 pg (26.7-34.0); Mean Corpuscular Volume 93.7 fL (81.0-99.0); Platelet Count 180 10^3/uL (150-450); Red Blood Count 3.97 10^6/uL (4.20-5.40); White Blood Count 6.1 10^3/uL (4.0-11.0)
--- NOTE | 2025-05-28 07:00 | ECG_ITS ---
The [facility] Test Date: 2025-05-28 Pat Name: MARIA R HIRSCH Department: Room: [facility] Gender: Female Tobacco Sampler: : 1935 Requested By: [id number] Order Number: [id number] Reading MD: MIGUEL A RAMIREZ M.D. Measurements Intervals [place] Rate: 75 P: 68 CA: 180 QRS: 54 QRSD: 81 T: 67 QT: 383 QTc: 430 Interpretive Statements SINUS RHYTHM NONSPECIFIC T-WAVE ABNORMALITY Compared to ECG 05/27/2025 12:37:29 No significant change Electronically Signed On 05-28-2025 9:30:34 EST by MIGUEL A RAMIREZ M.D.
[2025-05-28 07:04] LABS: Alanine Aminotransferase 21 U/L (14-59); Albumin Globulin Ratio 1.0; Albumin Level 3.2 g/dL (3.4-5.0); Alkaline Phosphatase 84 U/L (46-116); Anion Gap 17.0; Aspartate Amino Transferase 26 U/L (15-37); Blood Urea Nitrogen 16.0 mg/dL (7.0-18.0); Calcium 8.7 mg/dL (8.5-10.1); Carbon Dioxide 22.9 mmol/L (21.0-32.0); Chloride 106 mmol/L (98-107); Cholesterol 144 mg/dL (<=200); Estimated GFR (African America 60 (>=60 mL/min/1.73m^2); Estimated GFR (Non-African Ame 50 (>=60 mL/min/1.73m^2); Globulin 3.2 g/dL; Glucose 100 mg/dL (74-106); HDL Cholesterol 61 mg/dL (40-60); Potassium 3.9 mmol/L (3.5-5.1); Sodium 142 mmol/L (136-145); Total Protein 6.4 g/dL (6.4-8.2); Triglycerides 111 mg/dL (<=150); VLDL CHOLESTEROL 22.2 mg/dL
--- NOTE | 2025-05-28 07:56 | MR_ITS ---
The [address] [address] Patient Name: MARIA R HIRSCH MRN: [id number] date: 1935 Sex: F Assigned Patient Location: [place] Current Patient Location: [place] Accession/Order Number: [id number] Exam Date: 05/28/2025 08:15 Report Date: 05/29/2025 09:58 At the request of: RAISSA COLLINS MD Procedure: MR head/brain wo con MR head/brain wo con 05/29/2025 8:56 AM SIGN AND SYMPTOMS: Right-sided weakness PROTOCOL: Multiplanar multisequence MR images of the brain without IV contrast COMPARISON: 05/27/2025. FINDINGS: Extra axial spaces: There is age-related cortical atrophy. Hemorrhage: None. Ventricular system: Within normal limits. Basal cisterns: Within normal limits and not effaced. Cerebral parenchyma: Diffusion restriction is noted in the left frontal lobe abutting the precentral gyrus in the expected location of the motor cortex. The left hand and upper extremity extending into the prefrontal cortex. This is consistent with acute to subacute ischemia and is similar to that seen on the previous CT. There is corresponding edema on T2 and T2 FLAIR. There is a remote right frontal infarct. Remote lacunar infarcts are noted in the periventricular white matter. There is periventricular white matter T2 and FLAIR hyperintense signal consistent with chronic microvascular ischemic change. Midline shift: None.. Cerebellum: Within normal limits. Brainstem: Within normal limits. OTHER: Calvarium: Normal marrow signal. Vascular system: Satisfactory flow voids within the anterior and posterior circulation. Visualized Paranasal sinuses: Within normal limits. Visualized Orbits: Within normal limits. Visualized upper cervical spine: Within normal limits. Sella and skull base: Within normal limits. MR/MR head/brain wo con IMPRESSION: Acute to subacute ischemia is noted in the left frontal lobe similar to that seen on the previous CT. Remote infarcts are noted in the right frontal lobe with remote lacunar infarcts in the periventricular white matter. Chronic age-related neurodegenerative changes are also noted as above. Impression dictated by: Kermit White M.D. 05/29/2025 9:58 AM Dictation Location: [place] [address] Electronically authenticated by: [id number] Y Date: 05/29/2025 09:58
[2025-05-28] MEDS: ASPIRIN 81 MG TABLET.DR PO (10:09)
--- NOTE | 2025-05-28 10:12 | PM.HP ---
HPI H&P: HPI History of Present Illness Chief complaint: R SIDED ARM/LEG NUMBNESS, CVA Narrative: Mrs. Mahajan is an 89-year-old female with a history of hypertension. Patient woke up on Saturday 05/26 feeling very well. By 11:00 AM she felt sleepy. She took a nap for an hour and woke up around noon time on 05/26 with right-sided paralysis. Patient showed up in the emergency room 24 hours later for an evaluation. She was found to have right arm complete paralysis. CAT scan of the brain showed left frontal cortex hypoattenuation with probable edema. CTA of the head and neck did not show any dissection or occlusion or thrombus. Positive for left carotid stenosis measuring about 60% as well as calcified plaque at the origin of vertebral arteries contributing to moderate stenosis. Emergency room physician I discussed her case with stroke team in [place]. Patient did not qualify for thrombolysis or thrombectomy due to timeframe and lack of any thrombus seen as per emergency room conversation with stroke team. Stroke team recommended 300 mg of Plavix to be given in the emergency room followed by daily dual antiplatelet therapy. I had excepted to admit the patient to the medical floor for stroke evaluation. No new symptoms since yesterday. Patient continues to to have complete paralysis of the right arm. Patient reported that she has subtle right leg weakness and clumsiness. She denies any headache, slurred speech, swallowing difficulties. No prior history of stroke. Opioid HPI Opioid Management Most Recent Pain and Opioid Data: Last Pain Assessment Today, 10:07 Last ORT Total Score 0 05/27/25, 15:06 Last ORT Risk Category Low Risk 05/27/25, 15:06 Review of Systems ROS Status of ROS 10 or more systems reviewed and unremarkable except as noted in history and below [facility] Medical History (Updated 05/27/25 @ 14:25 by Monique Silver) Hypertension ?I10 - Essential (primary) hypertension (ICD-10) Hyperlipemia ?E78.5 - Hyperlipidemia, unspecified (ICD-10) Social History Highest level of school completed/degree received: some college, no degree Little interest or pleasure in doing things: not at all Feeling down, depressed, or hopeless: not at all Gender Identity: female Meds Home Medications and Allergies Home Medications ?Medication ?Instructions ?Recorded ?Confirmed ?Type cholecalciferol (vitamin D3) 1,250 1,250 mcg PO .weekly 05/27/25 05/27/25 History mcg (50,000 unit) capsule colestipol 1 gram tablet 1 g PO BID 05/27/25 05/27/25 History mupirocin 2 % topical ointment 1 applic topical BID 05/27/25 05/27/25 History polysorbate 80-glycerin 1 %-1 % 2 drp ophthalmic (eye) .4 times a 05/27/25 05/27/25 History eye drops day dry eyes and macular degeneration pravastatin 20 mg tablet 20 mg PO DAILY 05/27/25 05/27/25 History verapamil 300 mg capsule 24hr 300 mg PO DAILY 05/27/25 05/27/[address],ext.release Allergies Allergy/AdvReac Type Severity Reaction Status Date / Time No Known Drug Allergies Allergy Verified 05/27/25 12:31 Exam Narrative Exam Narrative: [pt is awake and alert. oriented to place, time and person HEENT: [place] conjunctiva and NL buccal mucosa Neck: Supple, no tenderness Endocrine: No Thyromegaly. Vascular: No JVD or carotid bruit. Lymphatic: No cervical lymphadenopathy. Chest: CTA no DTP. Heart RRR, no extra sound or murmur. Abd: Soft, no tenderness, no rebound and no rigidity. Increase abd girth therefore clinically I could not exclude the possibility of intra abd mass or organomegaly. LE: No cyanosis or clubbing, no varices or edema. Neuro: Awake, oriented, normal speech, normal comprehension, normal focus. Normal facial symmetry. The right arm is flaccid from proximal all the way to the hand. Patient has complete sensory loss in the right arm as well. She cannot feel my hand. Patient is able to lift up the right leg against gravity for more than 5-second but unable to drag it over the left knee down to the turner due to discoordination. Patient is able to speak and read. No other deficit. []] Constitutional Vital Signs, click to edit/add: Last Vital Signs Temp 98.0 F 05/28/25 07:58 Pulse 81 05/28/25 07:58 Resp 16 05/28/25 07:58 BP 91/66 05/28/25 07:58 Pulse Ox 96 05/28/25 07:58 O2 Del Method Room Air 05/28/25 07:58 Results Labs Labs: Short CBC 05/27/25 05/28/25 Range/Units 12:45 05:59 WBC 5.1 6.1 (4.0-11.0) 10^3/uL Hgb 13.1 12.4 (12.0-16.0) g/dL Hct 39.9 37.2 (36.0-48.0) % Plt Count 185 180 (150-450) 10^3/uL BMP 05/27/25 05/28/25 12:45 05:59 Sodium 143 142 Potassium 4.0 3.9 Chloride 108 H 106 Carbon Dioxide 25.4 22.9 BUN 14.0 16.0 Creatinine 0.91 1.05 H Glucose 117 H 100 Calcium 9.1 8.7 Liver Function 05/27/25 05/28/25 Range/Units 12:45 05:59 Total Bilirubin 0.4 0.5 (0.2-1.0) mg/dL AST 27 26 (15-37) U/L ALT 24 21 (14-59) U/L Alkaline Phosphatase 99 84 (46-116) U/L Albumin 3.6 3.2 L (3.4-5.0) g/dL Assessment and Plan Assessment and Plan (1) Cerebrovascular accident: Plan Acute left-sided hemispheric stroke causing patient to have complete paralysis and loss of sensation of the right arm as well as dis coordination and subtle weakness in the right leg. Patient showed up in the emergency room 24 hours after the initial weakness noted on 05/26 around noon time. Stroke team did not recommend transfer to tertiary care center for thrombectomy and did not recommend thrombolysis. Stroke team recommended Plavix 300 mg to be given on 05/27 followed by daily dual antiplatelet therapy. No worsening of neurological deficits since yesterday. I started the patient on aspirin 81 mg daily, Plavix 75 mg daily as well as statin 80 mg daily. Plan is to keep blood pressure systolically between 160 and 175. MRI of the brain to take a better look at the brain parenchyma. Echocardiogram rule out any cardiac thrombus or cardiomyopathy. Telemetry monitoring rule out A-fib or cardiac dysrhythmia. PT OT, speech and swallow eval and treatment. Likely patient will require to have skilled care. Neuro consultation to evaluate and provide further recommendation to Peripheral vascular disease, left-sided carotid stenosis, moderate stenosis of the right and left vertebral artery Continue dual antiplatelet therapy. Carotid ultrasound to take a better look at the left carotid stenosis and determine if carotid stenting may be indicated. Neuro consultation to evaluate and provide further recommendation. 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 Stroke neurology team was made aware of this according to the emergency room physician. Seeking neurology opinion on what needs to be done for this and what kind of follow-up. Hypertension Blood pressure was elevated on presentation. At 1 point systolic was 185 Patient was given amlodipine 2.5 mg daily on 05/27 at 2024 Blood pressure trending down therefore she was not given amlodipine this morning The goal is to keep her systolic above 160 for the next several days Chronic, subacute medical conditions not listed above, abnormal labs and imaging, incidental findings seen on labs and or imaging. These would need to be addressed. Could be addressed later on or in the outpatient setting by PCP collaboration with other needed outpatient providers when time and condition are appropriate.
[2025-05-28] MEDS: CLOPIDOGREL BISULFATE 75 MG TABLET PO (10:24)
--- NOTE | 2025-05-28 11:02 | PM.EN ---
Event Note Event Note: Teleneurologist called me to discuss her case. Neurologist is in agreement with the treatment plan as outlined in my H&P Neurologist recommended 30 days Holter monitor postdischarge to make sure that the patient is not having intermittent A-fib. Neurologist will provide recommendation relative to the left-sided carotid stenosis as well as the 3 mm vertebral aneurysmal dilatation.
[2025-05-28] MEDS: HEPARIN SODIUM (PORCINE) 5,000 UNIT/ML VIAL 5000 UNIT SUBQ ×2 (11:05→22:12)
[2025-05-28] MEDS: 0.9 % SODIUM CHLORIDE 1,000 ML 100 ML IV (11:05)
[2025-05-28] MEDS: ATORVASTATIN CALCIUM 40 MG TABLET 80 MG PO (22:13)
[2025-05-28] MEDS: ARTIFICIAL TEARS 300 DROP/15 ML BOTTLE OP (22:17)
[2025-05-29] VITALS (22 sets, daily range): BP systolic 144–173; BP diastolic 70–80; PULSE 78–108; TEMP 36.4–36.7; O2SAT 90–96
[2025-05-29] MEDS: ACETAMINOPHEN 325 MG TABLET 650 MG PO (06:17)
[2025-05-29] MEDS: ASPIRIN 81 MG TABLET.DR PO (07:59)
[2025-05-29] MEDS: CLOPIDOGREL BISULFATE 75 MG TABLET PO (07:59)
--- NOTE | 2025-05-29 09:15 | CM.NOTE ---
Rounds made with Dr. Cross, discussed findings on CT scan. Pt had MRI this am, awaiting results. Discussed skilled therapy at discharge, pt is open to skilled.
--- NOTE | 2025-05-29 10:42 | SWNOTE1 ---
SW spoke to case management after morning rounds with physician. They discussed with pt the recommendation of going to acute rehab. Pt was in agreement with this or the [place]. MALDONADO to send referral to [facility] acute rehab to see if she qualifies.
[2025-05-29] MEDS: HEPARIN SODIUM (PORCINE) 5,000 UNIT/ML VIAL 5000 UNIT SUBQ ×2 (10:52→21:11)
--- NOTE | 2025-05-29 11:39 | P.PN_ITS ---
Progress Note: Subjective Subjective Interval history: Patient was seen and evaluated this morning, she is lying in bed, her son is present at bedside. She is still unable to move her right arm but overall she seems to be in very good spirits. I did explain that the CT scan does show evidence of a stroke, this was already explained to her by my partner. Did talk about the MRI that was ordered and performed this morning, results were not back yet as at the time my rounding with the patient. Will plan on discussing MRI results for later on the afternoon. Did discuss PT and OT consults and likely need for therapy in the posthospitalization setting, she and her son are agreeable for this at the current time. Did discuss rehab versus SNF. She tells me she does not like taking a lot of medicine however she is okay and understands that she will be discharged on quite a few new medications to prevent further stroke from happening. All questions were answered. She was moving her hand and arm in an internal/external rotation which she says she was not able to do yesterday. Exam Narrative Exam Narrative: General: Awake alert, no acute distress, she is very pleasant, son is present at bedside HEENT: head atraumatic, normocephalic, moist mucous membranes CVS: regular rate and rhythm, no murmurs or gallops Respiratory: clear to auscultation bilaterally, no wheezing or crackles, symmetric expansion GI: soft, nondistended, nontender, positive bowel sounds with no organomegaly Extremity: Her right arm continues to be limp, she has no restrictions in passive motion of her right arm in any of the joints, she has full range of motion in her left upper extremity and bilateral lower extremities. She does have some chronic nonpitting edema in her bilateral lower extremities. No tenderness to palpation. Neuro: AOx3, CN II-VII intact. She is able to move her right arm and what appears to be an internal and external rotation, almost appears like she is using her rotator cuff muscles for this, on exam I do not appreciate any actual movement of her biceps or triceps, she cannot move any of the fingers in her hand. Her sensation is intact throughout her bilateral upper extremities, there are no deficits noted in her bilateral lower extremities. Skin: dry, intact no rashes or lesions Constitutional Vital Signs, click to edit/add: Last Vital Signs Temp 97.6 F 05/29/25 11:35 Pulse 86 05/29/25 11:35 Resp 20 05/29/25 11:35 BP 156/73 H 05/29/25 11:35 Pulse Ox 94 L 05/29/25 11:35 O2 Del Method Room Air 05/29/25 11:35 Progress Note: A&P Assessment and Plan (1) Ischemic stroke: Assessment and Plan: ? CT head on admission Consistent with an area of hypoattenuationOn the left frontal cortex extending to the precentral gyrus ? Some calcified plaque in the carotid bifurcation, 60% on the left ICA and less than 20% on the right. ? Also some calcified plaques throughout the vertebral arteries. ? MRI completed this morning shows acute to subacute ischemia in the region noted on the CT brain, there are also some remote infarcts in the right frontal lobe with remote lacunar infarcts in the periventricular white matter as well as chronic age-related changes. ? Continue aspirin and Plavix ? Continue statin ? Her lipid panel was consistent with an LDL of 61 ? A1c pending ? Continue telemetry monitoring, no evidence of A-fib as of yet ? Echocardiogram ordered, completed and read is pending ? Neurology is on consult ? PT OT, rehab or SNF. I will reach out to [facility] rehab coordinator and request evaluation. (2) Hypertension: Assessment and Plan: ? Her blood pressure this morning is 156/73, she is well outside the window permissive hypertension and will begin to treat her blood pressure ? She is not a fan of medications thus I will likely add low-dose amlodipine today and if needed, valsartan tomorrow with anticipation of discharging the combination pill [place] Plan ? DVT prophylaxis addressed ? Regular diet ? Full code
--- NOTE | 2025-05-29 12:21 | SWNOTE1 ---
SW faxed referral to [facility] acute rehab. Referral included face sheet, physician notes, PT/OT, case management report, and vitals.
--- NOTE | 2025-05-29 13:00 | CM.NOTE ---
Important Message From medicare discussed with pt, pt verbalizes understanding and signs paper. Original given to pt and copy placed in pt's chart.
[2025-05-29] MEDS: AMLODIPINE BESYLATE 5 MG TABLET PO (13:08)
--- NOTE | 2025-05-29 13:18 | SWNOTE1 ---
MALDONADO received a call from Mary at [facility] acute rehab and they have accepted. Mary will get things started. MALDONADO faxed over Dr. Cross's note from today.
[2025-05-29] MEDS: LOPERAMIDE HCL 2 MG CAPSULE PO ×2 (15:12→17:15)
--- NOTE | 2025-05-29 15:33 | CA_ITS ---
Patient Name: MARIA R HIRSCH MR#: [id number] : 1935 Exam Date: 05/29/2025 Ordering Doctor: RAISSA COLLINS ECHOCARDIOGRAM REPORT PROCEDURE: CA ECHO DOPPLER COMPLETE INDICATIONS: CVA COMPARISON: None. DESCRIPTION: COMPLETE ECHOCARDIOGRAM Real-time transthoracic echocardiography with 2D, M-mode, spectral and color flow Doppler performed. QUALITY: Technical quality was adequate. LEFT VENTRICLE: Normal chamber size. Normal left ventricular wall thickness. LV EF: Global left ventricular systolic function is hyperdynamic; visually estimated ejection fraction is 70-75%. No significant wall motion abnormalities DIASTOLIC: Grade I diastolic dysfunction. ATRIAL SEPTUM: Agitated saline contrast does not reveal an intra-cardiac shunt. LEFT ATRIUM: Normal chamber size. RIGHT ATRIUM: Normal chamber size. RIGHT VENTRICLE: Normal chamber size. Normal right ventricular systolic function. TRICUSPID VALVE: Normal mobility and thickness. No stenosis with trivial regurgitation. No evidence of pulmonary hypertension. RVSP is 22mmHg. MITRAL VALVE: Mildly thickened with normal mobility. No evidence of mitral valve stenosis. There is no mitral annular calcification. No mitral regurgitation. AORTIC VALVE: Normal trileaflet appearance. Mildly calcified aortic valve. Normal leaflet mobility. No evidence of aortic valve stenosis. Trivial aortic regurgitation. AORTIC ROOT: Normal diameter and appearance. PULMONIC VALVE: Normal thickness and mobility. No stenosis. No regurgitation. PERICARDIUM: Anterior free space; trivial effusion versus fat pad. IVC: Collapses with inspiration. The IVC is normal in size measuring 1.3cm. CONCLUSION: 1. Global left ventricular systolic function is hyperdynamic; visually estimated ejection fraction is 70 to 75% 2. Normal right ventricular size and systolic function 3. Grade 1 diastolic dysfunction 4. The left atrium is normal in size 5. No significant valvular abnormalities 6. Anterior free space; trivial effusion versus fat pad 7. Agitated saline contrast does not reveal an intracardiac shunt Adult Echocardiography Procedure Report Left Ventricle LVEDD (3.7 - 5.6 cm): 3.18 cm LVESD (2.2 - 4.0 cm): 2.15 cm LVIVS thickness (0.6 - 1.2 cm): 1.12 cm LVPW thickness (0.5 - 1.0 cm): 0.94 cm e': 0.08 m/s E - e': 7.32 LVOT Max Gradient: 8.18 mm[Hg] LVOT Area (cm2): 1.43 m/s Peak Velocity (LVOT): 1.43 m/s Mean Velocity (LVOT): 0.96 m/s LVOT Diameter 1.88 cm Left Ventricular Ejection Fraction: 64.51 % Left Atrium LA Volume Index (2D A2C): 21.26 ml/m2 Left Atrium Systolic Dimension: 2.74 cm Mitral Valve MV E to A Ratio: 0.56 Mitral Valve A-Wave Peak Velocity: 1.04 m/s Mitral Valve E-Wave Peak Velocity: 0.58 m/s Right Ventricle RV Internal Diastolic Dimension: 3.20 cm Aorta AO Root Diam: 2.59 cm Ascending Ao Diam: 2.77 cm Aortic Valve AoV Area (Peak Alok): 2.51 cm2, 2.51 cm2 AoV Area (VTI): 2.57 cm2, 2.57 cm2 Peak Velocity(Antegrade Flow): 1.58 m/s Peak Gradient(Antegrade Flow): 10.04 mm[Hg] Mean Velocity(Antegrade Flow): 1.04 m/s Mean Gradient(Antegrade Flow): 5.08 mm[Hg] Velocity Time Integral: 25.41 cm Tricuspid Valve Peak Velocity (Regurgitant Flow): 2.17 m/s, 2.09 m/s Pulmonic Valve Mean Gradient: 1.76 mm[Hg], 1.56 mm[Hg], 2.17 mm[Hg], 2.29 mm[Hg] Mean Velocity: 0.62 m/s, 0.58 m/s, 0.69 m/s, 0.70 m/s Peak Velocity: 0.96 m/s Peak Gradient: 3.19 mm[Hg], 2.94 mm[Hg], 4.09 mm[Hg], 4.76 mm[Hg] Right Atrium Right Atrium Systolic Pressure: 36.54 ml, 36.54 ml Dictated by: Amy Mari M.D. on 05/29/2025 at 17:33 Approved by: Amy Mari M.D. on 05/29/2025 at 17:39
[2025-05-29] MEDS: ATORVASTATIN CALCIUM 40 MG TABLET 80 MG PO (21:10)
[2025-05-30] VITALS (19 sets, daily range): BP systolic 121–147; BP diastolic 68–74; PULSE 80–105; TEMP 36.5–37.4; O2SAT 93–95
[2025-05-30 06:03] LABS: Anion Gap 12.8; Blood Urea Nitrogen 14.0 mg/dL (7.0-18.0); Calcium 9.3 mg/dL (8.5-10.1); Carbon Dioxide 24.8 mmol/L (21.0-32.0); Chloride 109 mmol/L (98-107); Estimated GFR (African America >60 (>=60 mL/min/1.73m^2); Estimated GFR (Non-African Ame >60 (>=60 mL/min/1.73m^2); Glucose 126 mg/dL (74-106); Magnesium 2.0 mg/dL (1.8-2.4); Potassium 3.6 mmol/L (3.5-5.1); Sodium 143 mmol/L (136-145)
--- NOTE | 2025-05-30 09:06 | SWNOTE1 ---
MALDONADO called Mary at [facility] acute rehab and did clarify that we do have to wait on precer to be approved before pt discharge to actue rehab. Mary will check the portal and keep MALDONADO up to date.
--- NOTE | 2025-05-30 09:10 | CM.NOTE ---
Rounds made with Dr. Cross, discussed plan of care with pt and daughter. Pt will discharge to [facility] for acute rehab when medically stable.
[2025-05-30] MEDS: ACETAMINOPHEN 325 MG TABLET 650 MG PO (09:18)
[2025-05-30] MEDS: CLOPIDOGREL BISULFATE 75 MG TABLET PO (09:19)
[2025-05-30] MEDS: ASPIRIN 81 MG TABLET.DR PO (09:19)
[2025-05-30] MEDS: AMLODIPINE BESYLATE 5 MG TABLET PO (09:19)
[2025-05-30] MEDS: HEPARIN SODIUM (PORCINE) 5,000 UNIT/ML VIAL 5000 UNIT SUBQ ×2 (10:55→21:11)
--- NOTE | 2025-05-30 11:27 | PM.PN ---
Progress Note: Subjective Subjective Interval history: Seen and evaluated this morning, she is laying in bed, her daughter is present at bedside. Explained the MRI results to the patient and the daughter this morning. Did review the plan for inpatient rehab upon discharge from this hospital, pending insurance approval. Patient and daughter agreeable. The patient is concerned about her right arm swelling and some pain in her right thumb which she does not usually have. Had a long talk the patient about not moving her arm will lead to some swelling, this may come and go throughout the therapy process. The thumb has good passive movement however she cannot do any active movement secondary to her stroke. Discussed ordering x-ray with the patient. Exam Narrative Exam Narrative: General: Awake alert, no acute distress, she is very pleasant, daughter is present at bedside HEENT: head atraumatic, normocephalic, moist mucous membranes CVS: regular rate and rhythm, no murmurs or gallops Respiratory: clear to auscultation bilaterally, no wheezing or crackles, symmetric expansion GI: soft, nondistended, nontender, positive bowel sounds with no organomegaly Extremity: Her right arm continues to be limp, she has no restrictions in passive motion of her right arm in any of the joints, she has full range of motion in her left upper extremity and bilateral lower extremities. She does have some chronic nonpitting edema in her bilateral lower extremities. Her left arm has some nonpitting edema which was not present yesterday. There is no pain to palpation anywhere on her left arm. Her left thumb, she does have some tenderness to palpation in her left MCP joint, there is also tenderness with passive movement of the joint. Neuro: AOx3, CN II-VII intact. She is able to move her right arm and what appears to be an internal and external rotation, almost appears like she is using her rotator cuff muscles for this, on exam I do not appreciate any actual movement of her biceps or triceps, she cannot move any of the fingers in her hand. Her sensation is intact throughout her bilateral upper extremities, there are no deficits noted in her bilateral lower extremities. Skin: dry, intact no rashes or lesions Constitutional Vital Signs, click to edit/add: Last Vital Signs Temp 99.3 F 05/30/25 08:00 Pulse 105 H 05/30/25 10:00 Resp 18 05/30/25 04:10 BP 138/69 05/30/25 08:00 Pulse Ox 95 05/30/25 08:00 O2 Del Method Room Air 05/30/25 08:00 Progress Note: Objective Labs Labs: [facility] 05/30/25 04:57 Sodium 143 Potassium 3.6 Chloride 109 H Carbon Dioxide 24.8 BUN 14.0 Creatinine 0.85 Glucose 126 H Calcium 9.3 Progress Note: A&P Assessment and Plan (1) Ischemic stroke: Assessment and Plan: ? CT head on admission Consistent with an area of hypoattenuationOn the left frontal cortex extending to the precentral gyrus ? Some calcified plaque in the carotid bifurcation, 60% on the left ICA and less than 20% on the right. ? Also some calcified plaques throughout the vertebral arteries. ? MRI completed this 05/29 shows acute to subacute ischemia in the region noted on the CT brain, there are also some remote infarcts in the right frontal lobe with remote lacunar infarcts in the periventricular white matter as well as chronic age-related changes. ? Continue aspirin and Plavix for a total of 21 days, after the total 1 day. De-escalate to aspirin monotherapy ? Continue statin ? Her lipid panel was consistent with an LDL of 61 ? A1c is 5.3 ? Continue telemetry monitoring, no evidence of A-fib as of yet ? Echocardiogram ordered, global left ventricular systolic dysfunction with ejection fraction of 70 to 75%. No evidence of stroke origination noted. ? Neurology is on consult, plan for outpatient follow-up in 3 to 4 weeks. ? PT OT, rehab or SNF. Patient is excepted at rehab at [facility], pending pre-CERT. (2) Hypertension: Assessment and Plan: ? Her echocardiogram is consistent with diastolic heart failure ? Discontinue amlodipine ? Will start low-dose metoprolol and spironolactone. Plan ? DVT prophylaxis addressed ? Regular diet ? Full code Disposition pending pre-CERT to inpatient rehab at [facility]
--- NOTE | 2025-05-30 12:23 | SWNOTE1 ---
MALDONADO faxed updated PT/OT, physician note, vitals, and nursing notes to Mary at [facility] acute rehab.
[2025-05-30] MEDS: METOPROLOL TARTRATE 25 MG TABLET 12.5 MG PO ×2 (12:37→21:11)
[2025-05-30] MEDS: SPIRONOLACTONE 25 MG TABLET 12.5 MG PO (12:37)
--- NOTE | 2025-05-30 14:57 | XR_ITS ---
[place] [id number] Patient Name: MARIA R HIRSCH MRN: [id number] date: 1935 Sex: F Assigned Patient Location: [place] Current Patient Location: [place] Accession/Order Number: [id number] Exam Date: 05/30/2025 15:20 Report Date: 05/30/2025 19:20 At the request of: HECTOR DAMON DO Procedure: XR hand RT min 3V 3 views of the right hand INDICATION: Thumb pain FINDINGS: No fractures or dislocation. Fzyn-[id number] degenerative change. Greatest involving the interphalangeal joints. Soft tissues unremarkable. XR/XR hand RT min 3V IMPRESSION: [id number]-[id number] degenerative changes. Negative acute osseous abnormality. Impression dictated by: Meliton Blunt M.D. 05/30/2025 7:20 PM Dictation Location: [place] [id number] Electronically authenticated by: [id number] Y Date: 05/30/2025 19:20
[2025-05-30] MEDS: ATORVASTATIN CALCIUM 40 MG TABLET 80 MG PO (21:12)
[2025-05-31] VITALS (8 sets, daily range): BP systolic 116–158; BP diastolic 50–76; PULSE 73–88; TEMP 36.6–36.8; O2SAT 92–94
[2025-05-31] MEDS: CLOPIDOGREL BISULFATE 75 MG TABLET PO (08:28)
[2025-05-31] MEDS: ASPIRIN 81 MG TABLET.DR PO (08:28)
[2025-05-31] MEDS: METOPROLOL TARTRATE 25 MG TABLET 12.5 MG PO (08:28)
[2025-05-31] MEDS: SPIRONOLACTONE 25 MG TABLET 12.5 MG PO (08:28)
--- NOTE | 2025-05-31 09:09 | SWNOTE1 ---
MALDONADO received a call from Mary at [facility] rehab and her insurance did approve her to go. MALDONADO updated case management and pt's nurse.
--- NOTE | 2025-05-31 09:19 | SWNOTE1 ---
SW spoke with pt to let her know she is approved to go to rehab at [facility] today. SW did ask pt if SW could call family to discuss transportation, pt stated to call Marilu, she is her POA. MALDONADO called and spoke with pt's daughter, Marilu. Marilu is alright with transporting, but stated she has a traverse and it is a little higher up. She also voiced to see what her mom would like to do as well. Mairlu will be coming to hospital in about 30 minutes. SW to stop back in and speak with pt.
--- NOTE | 2025-05-31 09:42 | OT.DAILY ---
Occupational Therapy Daily Note OT Inpatient Daily Visit Note Start: 05/29/25 11:16 Freq: Status: Active Protocol: Document 05/31/25 09:32 [id number] (Rec: 05/31/25 09:41 [id number]) OT Visit Details Time In/Time Out Time In 09:10 Time Out 09:25 OT Treatment Plan Subjective Subjective Pt AAOx4 upon arrival. Talkative and agreeable to participate. Pt reports she is feeling better with decreased pain in RUE. Objective Objective Mod A and 2-4 VCs for hand placement, from supine-to- sit on EOB. CGA from [id number] from bed, ambulatory to recliner chair. Pt reports she is wanting to regain function in RUE to complete ADL tasks. To improve communication and coordination with affected muscles, Pt able to pinch yellow graded pin with L hand, followed by R hand with h/h to produce a functional grasp. Completed this task 3x. With Mod A Pt agreeable to attempt grasping with R hand of a thick writing utensil, completed 3x. Able to maintain grasp for 2-4 sec before dropping. When ambulatory Pt used rui- walker with accuracy, maintaining JUAN and dynamic balance. Assessment Assessment Pt tolerated treatment well. Pt will be transferred to [facility] today to begin intense therapy. Pt is motivated to return to [facility]. Continue OT POC. Patient Education Patient Education PT educated on role of therapy and importance of neuromuscular reeducation. Verbalized understanding at this time. Short Term Goals STG 1 Patient will be able to tolerate gentle stretching of right UE to improve PROM to all planes of movement to promote active movement. Tolerated gentle. STG 2 Patient will be able to demonstrate trace movements at right elbow, wrist, and hand to promote improve functional abilities with ADL's. Trace movement of right elbow extension only. None at wrist or hand. STG 3 Patient will be able to ambulate to the bathroom sink, and complete oral care/face wash with CGA and verbal cues with good safety. Completed teeth brushing with CGA. Min assist with mouthwash to open bottle. STG 4 Patient will be able to doff and lui bilateral socks using left hand only. Unchanged OT Production Packager Timed Codes Therapeutic activity 15 minutes (minutes) Therapeutic activity 1 units
[2025-05-31] MEDS: HEPARIN SODIUM (PORCINE) 5,000 UNIT/ML VIAL 5000 UNIT SUBQ (10:27)
--- NOTE | 2025-05-31 10:30 | CM.NOTE ---
Rounds made with Dr. Cross, discussed plan of care with pt. Pt has been accepted to inpatient rehab at [facility]. Daughter will transport via private vehicle. Will await discharge instructions.
--- NOTE | 2025-05-31 12:10 | PC.NURSE ---
[facility] will contact Fadia (case management) 06/01 with an appt for patient. [phone]
--- NOTE | 2025-05-31 12:23 | SWNOTE1 ---
30 day event monitor was placed on patient. MALDONADO called and spoke with Mary at [facility] acute rehab to let her know that daughter will be transporting and leaving in about 15 minutes. Mary did receive dc med rec, but did request other orders. MALDONADO does not have any other orders at this time. MALDONADO notifired Mary that an event monitor was placed for 30 days. Mary stated usually there are other orders that come over as well, SW unsure as the dc summary is not complete. Pt is on regular diet. MALDONADO told Mary we can have a CRF completed if needed which is what is filled out when pt goes to SNF, but she is going to acute rehab. Mary is alright with this. MALDONADO updated Val in case management and she will have physician sign CRF and complete CRF. MALODNADO spoke to Sruthi, field secretary on med surge, and [facility]rendan Garrett would not schedule follow up apt. They are having physician review information and they will call Fadia in case management tomorrow to schedule apt date and time. SW to call pt's daughter to update her.
--- NOTE | 2025-05-31 14:18 | P.DS_ITS ---
DS: Providers Provider Date of admission: 05/27/25 14:47 Primary care physician: AYAAN GONZALEZ DO Consults: 05/27/25 14:26 Consult to Telestroke Routine Reason for consultation: subactue CVA 05/27/25 15:33 Clinical Bedside Swallow Eval and Treat Routine Reason for consultation: CVA r/o dysphagia Occupational Therapy Eval and Treat Routine Reason for consultation: Weakness Physical Therapy Eval and Treat Routine Reason for consultation: Weakness 05/28/25 10:24 Consult to TeleNeurology Routine Reason for consultation: CVA, carotid stenosis, vertebral aneurysm Discharging clinician: HECTOR DAMON Anticipated date of discharge: 05/31/25 DS: Diagnosis Discharge Diagnosis (1) Ischemic stroke: (2) Hypertension: DS: Summary Hospital Course Hospital Course: Miss Mahajan Is an 89-year-old female who was admitted the hospital the morning of May 28 with a chief complaint of right arm paralysis. This happened pretty suddenly roughly greater than 24 hours prior to admission, she was admitted to the hospital due to concerns for stroke. CT head without contrast performed in the emergency room showed an area of hypoattenuation in the left frontal cortex near the precentral gyrus, CTA head and neck were also performed and did note some calcified plaque in her carotids. 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 She was admitted the hospital for ischemic stroke. She was placed on telemetry. An MRI of her brain was performed on May 28 and did show acute to subacute ischemia noted in the left frontal lobe as seen on CT with other remote infarcts noted in the right frontal and remote lacunar infarcts. Echocardiogram was performed on May 29 and showed ejection fraction of 70 to 75% with no wall motion abnormalities, there is no evidence of intracardiac shunt or clot or thrombus. She was seen on neurology consultation who recommended initiating aspirin and Plavix for 21 days, after the 21-day. She should be on aspirin monotherapy. She was started on a statin. And she was started on blood pressure control medication which included metoprolol and spironolactone based on echocardiogram results. She was seen by PT and OT who recommended inpatient rehab, she was subsequently excepted for inpatient rehab and approved the morning on the . She was discharged and transferred to inpatient rehab of the afternoon of May 31. She will reyes ve outpatient neurology follow-up in approximately 3 to 4 weeks, she was discharged with the outpatient 30-day Holter monitor to monitor for any signs of A-fib. There was no evidence of A-fib on the monitor this admission. Time Spent with Patient Time attestation: Total time spent providing and/or coordinating discharge services: Quality: Stroke Onset of Symptoms Date: 05/26/25 Onset of Symptoms Time: 11:00 Exam Narrative Exam Narrative: General: Awake alert, no acute distress, she is very pleasant, daughter is present at bedside HEENT: head atraumatic, normocephalic, moist mucous membranes CVS: regular rate and rhythm, no murmurs or gallops Respiratory: clear to auscultation bilaterally, no wheezing or crackles, symmetric expansion GI: soft, nondistended, nontender, positive bowel sounds with no organomegaly Extremity: Her right arm continues to be limp, she has no restrictions in passive motion of her right arm in any of the joints, she has full range of motion in her left upper extremity and bilateral lower extremities. She does have some chronic nonpitting edema in her bilateral lower extremities. Her left arm has some nonpitting edema which was not present yesterday. There is no pain to palpation anywhere on her left arm. Her left thumb, she does have some tenderness to palpation in her left MCP joint, there is also tenderness with passive movement of the joint. Neuro: AOx3, CN II-VII intact. She is able to move her right arm and what appears to be an internal and external rotation, almost appears like she is using her rotator cuff muscles for this, on exam I do not appreciate any actual movement of her biceps or triceps, she cannot move any of the fingers in her hand. Her sensation is intact throughout her bilateral upper extremities, there are no deficits noted in her bilateral lower extremities. Skin: dry, intact no rashes or lesions Constitutional Vital Signs, click to edit/add: Last Vital Signs Temp 97.9 F 05/31/25 07:06 Pulse 75 05/31/25 09:59 Resp 18 05/31/25 07:06 BP 158/76 H 05/31/25 07:06 Pulse Ox 92 L 05/31/25 07:06 O2 Del Method Room Air 05/31/25 07:06 Discharge Plan Discharge Disposition: Xfer Inpatient Rehab Fac Condition: Fair Discharge Medications: New atorvastatin 40 mg Tablet 80 mg PO QHS 90 Days Qty: 180 0RF clopidogrel 75 mg Tablet 75 mg PO QD 19 Days Qty: 19 0RF aspirin 81 mg Tablet,Delayed Release (Dr/Ec) 81 mg PO QD 90 Days Qty: 90 0RF spironolactone 25 mg Tablet 12.5 mg PO QD 90 Days Qty: 45 0RF metoprolol succinate [Toprol XL] 25 mg tablet extended release 24 hr 25 mg PO DAILY Qty: 90 0RF Continued mupirocin 2 % ointment 1 applic TOPICAL BID colestipol 1 gram tablet 1 g PO BID cholecalciferol (vitamin D3) 1,250 mcg (50,000 unit) capsule 1,250 mcg PO .weekly polysorbate 80-glycerin 1-1 % drops 2 drp ophthalmic (eye) .4 times a day Discontinued verapamil 300 mg capsule, [address] 300 mg PO DAILY pravastatin 20 mg tablet 20 mg PO .QHS Print Language: Amharic Covered Buckle Assembler/Pharmaceutical Assistant Instructions: Discharge to [facility] Forms: Portal Instructions Discharge Date/Time: 05/31/25 12:09
--- NOTE | 2025-05-31 14:30 | SWNOTE1 ---
MALDONADO faxed discharge summary and speech eval to Mary at [facility].
== END 2025-05-31 12:09 | DRG 65 ==
LOC: ER 14:19 → MS 14:51
PROVIDERS: Internal Medicine; Admitting Provider Internal Medicine; Emergency Provider Student in an Organized Health Care Education/Training Program; Family Provider Internal Medicine; PCP Internal Medicine; Visit Provider Internal Medicine
DX: I63.232 Cerebral infarction due to unspecified occlusion or stenosis of left carotid arteries (principal); G81.91 Hemiplegia, unspecified affecting right dominant side; I50.30 Unspecified diastolic (congestive) heart failure; R29.705 NIHSS score 5; I11.0 Hypertensive heart disease with heart failure; E78.5 Hyperlipidemia, unspecified; I63.213 Cerebral infarction due to unspecified occlusion or stenosis of bilateral vertebral arteries; I72.6 Aneurysm of vertebral artery; Z79.899 Other long term (current) drug therapy
CPT/HCPCS: 36415; 70450; 70496; 70498; 70551; 71045; 73130; 80048; 80053; 80061; 82948; 83036; 83735; 84443; 84484; 85025; 85610; 85730; 92610; 93005; 93270; 93306; 93880; 97110; 97161; 97166; 97530; 97535; 99285; J1644; Q9967